=== PATIENT | female | born 1945 | race Caucasian/White ===

== ENCOUNTER 2018-12-02 21:14 | Emergency (ER) | payer MEDICARE, BC ==
--- OUTSIDE RECORDS SUMMARY | 2018-12-02 21:19 | XMS REPORT | Continuity of Care Document ---
:1945 External Reference #:[id number] Author Name Andressa Spaulding Care Team Providers Name Role Phone Daniel Howard MD Primary Care Physician Unavailable Payers Date Identification Numbers Payment Provider Subscriber Policy Number: [id number] Medicare Alea Benitezn PayID: [id number] [address] [place] [address] Expires: 2018 Policy Number: [id number] Medicare Alea Banks PayID: [id number] [address] [place] [address] Effective: 2012 Policy Number: [id number] [facility] Alea Benitezn PayID: [id number] [address] [address] [place] [address] Problems Active Problems Provider Date Disorder of shoulder Ramses Banda MD Onset: 11/14/2018 Family History Date Family Member(s) Observation Comments General Cancer General Heart Disease General Diabetes General Hypertension General Stroke General Rheumatoid Arthritis Social History Type Date Description Comments Sex Unknown Lives With Alone Occupation Retired ETOH Use Denies alcohol use Tobacco Use Start: Unknown Patient has never smoked Smoking Status Reviewed: 11/14/18 Patient has never smoked Exercise Type/Frequency Exercises regularly Allergies, Adverse Reactions, Alerts Active Allergies Reaction Severity Comments Date Codeine hypotension/vasovagal response 12/31/2012 Keflex rash 12/31/2012 Penicillin 07/08/2014 Clindamycin 11/14/2018 Medications Active Medications SIG Qnty Indications Ordering Provider Date No Active Medications Unknown 11/14/2018 History Medications No Active Medications Unknown 08/24/2014 - 10/21/2014 No Active Medications Unknown 07/08/2014 - 07/08/2014 Percocet 1-2 tabs by mouth 60tabs Oren Abdullahi M.D. 07/08/2014 - 5-325mg Tablets q4-6 hours as 08/23/2014 needed pain Zofran 1 tab by mouth 60tabs Oren Abdullahi M.D. 07/08/2014 - 4mg Tablets every 6 hours as 08/23/2014 needed nausea No Active Medications Unknown 06/01/2014 - 06/01/2014 Oscal 500/200 D-3 1 po qd Unknown - 05/31/2014 [id number] Tablets Vitamin D3 1 po qd Unknown - 200Iu Capsules 05/31/2014 Meloxicam 1 by mouth every Unknown - 15mg Tablets day 07/07/2014 Aleve Unknown - 11/13/2018 Immunizations CPT Code Status Date Vaccine Lot # [id number] Given 02/26/2013 Flu Vaccine Split Virus Preservative Free For [id number] Indiv [id number] Older Vital Signs Date Vital Result Comment 11/14/2018 9:41am Height 63.50 inches 5'3.50" Weight 155.00 lb Heart Rate 80 /min BP Systolic 138 mmHg BP Diastolic 90 mmHg Respiratory Rate 22 /min Body Temperature 98.5 F Pain Level 10 BMI (Body Mass Index) 27.0 kg/m2 02/08/2015 9:57am Height 64 inches 5'4" Weight 145.00 lb Pain Level 0 BMI (Body Mass Index) 24.9 kg/m2 12/06/2014 9:31am Height 64 inches 5'4" Weight 145.00 lb Pain Level 4 when hurting BMI (Body Mass Index) 24.9 kg/m2 10/21/2014 10:01am Height 64 inches 5'4" Weight 145.00 lb Pain Level 0 BMI (Body Mass Index) 24.9 kg/m2 08/24/2014 11:15am Height 64 inches 5'4" Weight 145.00 lb Pain Level 2 BMI (Body Mass Index) 24.9 kg/m2 07/27/2014 2:36pm Height 64 inches 5'4" Weight 145.00 lb Body Temperature 97.5 F BMI (Body Mass Index) 24.9 kg/m2 07/08/2014 10:00am Height 64 inches 5'4" Weight 145.00 lb Heart Rate 80 /min BP Systolic 141 mmHg BP Diastolic 98 mmHg BMI (Body Mass Index) 24.9 kg/m2 06/10/2014 10:00am Height 64 inches 5'4" Weight 145.00 lb Heart Rate 81 /min BP Systolic 135 mmHg BP Diastolic 95 mmHg BMI (Body Mass Index) 24.9 kg/m2 12/31/2012 1:13pm Height 62.75 inches 5'2.75" Weight 146.00 lb Heart Rate 74 /min BP Systolic Sitting 128 mmHg BP Diastolic Sitting 80 mmHg BMI (Body Mass Index) 26.1 kg/m2 Results Test Date Facility Test Result H/L Range Note Comp Metabolic 07/11/2007 [facility] One Over 1.[address] [address] [phone] Anion Gap 9.0 mmol/L 2-11 1 Albumin/Globulin Ratio 1.3 1-3 Albumin 4.3 GM/DL 3.2-5.2 Alkaline Phosphatase 46 U/L 30-110 Alt (SGPT) 26 U/L 14-54 Ast (Sgot) 27 U/L 12-42 BUN 17 mg/dL 6-24 Calcium 9.8 mg/dL 8.7-10.2 Chloride 100 mmol/L Low 101-111 Co2 (Carbon Dioxide) 30.0 mmol/L 22-32 Globulin 3.4 GM/DL 2-4 Glucose 104 mg/dL 70-105 Potassium 4.2 mmol/L 3.5-5.0 Sodium 139 mmol/L 135-145 Bilirubin Total 0.6 mg/dL 0.4-1.5 Total Protein 7.7 GM/DL 6.2-8.1 BUN/Creatinine Ratio 21.3 High 8-20 Creatinine 0.8 mg/dL 0.5-1.4 1 Anion gap measurement may be of limited value in the presence of any alkalosis, especially in a combined acid base disorder. . Procedures Date Code Description Status 11/14/2018 83776 Inject/Drain Joint/Bursa Major W/O US Completed 01/21/2018 45146 Destruction Of Benign Lesions Any Method 1-14 lesions Completed 01/21/2018 28624 Destruction ALL Benign Or Premalignant Lesion (Other Completed Than [place] 07/16/2014 14861 Arthroscopy Biceps Tenodesis Completed 07/16/2014 75223 Arthroscopy Biceps Tenodesis Completed 07/16/2014 47060 Arthroscopy Shoulder,W/Rotator Cuff Repair Completed 07/16/2014 44983 Arthroscopy Shoulder,W/Rotator Cuff Repair Completed 07/16/2014 73885 Arthroscopy,Shoulder Decompression Of Subacromial Space Completed W/Acromio 07/16/2014 25541 Arthroscopy,Shoulder Decompression Of Subacromial Space Completed W/Acromio 01/02/2012 [id number] Mammogram Completed 11/01/2005 [id number] Colonoscopy Completed Encounters Type Date Location Provider Dx Diagnosis Office Visit 01/21/2018 [facility] Tram Melo, L21.8 Other seborrheic 10:00a MD dermatitis D18.01 Hemangioma of skin and subcutaneous tissue L81.4 Other melanin hyperpigmentation L82.1 Other seborrheic keratosis L82.0 Inflamed seborrheic keratosis L57.0 Actinic keratosis L53.8 Other specified erythematous conditions R20.8 Other disturbances of skin sensation Office Visit 03/06/2017 11:00a [facility] Jass Corcoran L82.1 Other seborrheic keratosis L21.8 Other seborrheic dermatitis D18.01 Hemangioma of skin and subcutaneous tissue Z09 Encntr for f/u exam aft trtmt for cond oth than malig neoplm Z87.2 Personal history of diseases of the skin, subcu Office Visit 01/11/2017 10:10a [facility] Jass Corcoran, L82.1 Other seborrheic keratosis L20.84 Intrinsic (allergic) eczema Office Visit 02/08/2015 10:00a Ambrocio Abdullahi V54.89 [facility], [facility] Other C.M.AEfrain 840.4 Sprains & Strains Rotator Cuff (Capsule) Office Visit 12/06/2014 9:30a [place]4.89 [facility], [facility] Office Visit 10/21/2014 10:00a [place]4.89 Aftercare, [facility] Other [facility] Office Visit 06/10/2014 10:00a Ambrocio Abdullahi 840.4 Sprains & Strains [facility] Rotator Cuff [facility]. (Capsule) Plan of Treatment Future Appointment(s):12/16/2018 10:00 am - Ramses Banda MD at [facility]01/23/2019 10:30 am - Tram Melo MD at [facility] - Ramses Banda, MDM75.42 Impingement syndrome of left shoulderNew Therapy:Physical TherapyFollow up:Follow up: 4 weeks
[2018-12-02 21:22] VITALS: BP 140/103
[2018-12-02] MEDS ORDERED: Lidocaine 1% w EPI 1:100,000* 30 ML VIAL INJ ONE ×2 (21:30→21:33)
[2018-12-02] MEDS ORDERED: Gelfoam 12-7 ADSORBABL SPONGE* 1 EA SPONGE TOPICAL ONE (21:34)
[2018-12-02] MEDS ORDERED: Lidocaine 1% w EPI 1:100,000* 30 ML VIAL ONE (21:36)
--- NOTE | 2018-12-02 21:58 | UC ---
Lower Extremity/Ankle HPI - HPI Summary HPI Summary: 73 yo female present with bleeding varicose vein from picking at it has bleed for hours even with pressure not on blood thinners - History of Current Complaint Chief Complaint: UCLowerExtremity Stated Complaint: WOUND ON LEG Time Seen by Provider: 12/02/18 21:25 Hx Obtained From: Patient Onset/Duration: Sudden Onset Severity Initially: Moderate Severity Currently: Moderate Pain Intensity: 0 Pain Scale Used: 0-10 Numeric Aggravating Factor(s): Standing, Ambulation Alleviating Factor(s): Other - compression Able to Bear Weight: Yes Legs: 1 - bleeding varicose vein - Allergies/Home Medications Allergies/Adverse Reactions: Allergies Allergy/AdvReac Type Severity Reaction Status Date / Time cephalexin Allergy Rash Verified 12/02/18 21:22 codeine Allergy Dizziness Verified 12/02/18 21:22 Penicillins Allergy Unknown Verified 12/02/18 21:22 Reaction Details clindamycin AdvReac HEART Verified 12/02/18 21:24 BURN, LOOSE STOOLS Home Medications: Home Medications Ibuprofen TAB* [Advil TAB*] 200 mg PO PRN 12/02/18 [History] PMH/Surg Hx/FS Hx/Imm Hx Previously Healthy: Yes - Surgical History Surgical History: Yes Surgery Procedure, Year, and Place: 1987 LAMINECTOMY RUPTURED DISK LOW BACK, [place]. 1996 RIGHT BUNIONECTOMY, [facility]. 1996 LEFT FOOT SURGERY, [facility]. 1974 BILATERAL TUBAL LIGATION,. BASAL CELL CARCINOMAS REMOVED, OFFICE. 2004 LEFT SHOULDER BONE SPUR SURGERY, OFFICE - Family History Known Family History: Positive: Hypertension - Social History Alcohol Use: None Alcohol Amount: MEME AND EASTER Substance Use Type: None Smoking Status (MU): Never Smoked Tobacco Review of Systems All Other Systems Reviewed And Are Negative: Yes Constitutional: Positive: Negative Skin: Positive: Negative Eyes: Positive: Negative ENT: Positive: Negative Respiratory: Positive: Negative Cardiovascular: Positive: Negative Gastrointestinal: Positive: Negative Genitourinary: Positive: Negative Motor: Positive: Negative Neurovascular: Positive: Negative Musculoskeletal: Positive: Negative Neurological: Positive: Negative Psychological: Positive: Negative Physical Exam Triage Information Reviewed: Yes Appearance: Well-Appearing, No Pain Distress, Well-Nourished Vital Signs: Initial Vital Signs Temp 97.1 F 12/02/18 21:18 Pulse 95 12/02/18 21:18 Resp 20 12/02/18 21:18 BP 140/103 12/02/18 21:18 Pulse Ox 97 12/02/18 21:18 Vital Signs Reviewed: Yes Eyes: Positive: Conjunctiva Clear ENT: Positive: Hearing grossly normal. Negative: Nasal congestion, Nasal drainage, Trismus, Muffled voice, Hoarse voice Neck: Positive: Supple, Nontender, No Lymphadenopathy Respiratory: Positive: Lungs clear, Normal breath sounds, No respiratory distress, No accessory muscle use Cardiovascular: Positive: RRR, No Murmur Musculoskeletal: Positive: ROM Intact, No Edema Neurological: Positive: Alert Psychological Exam: Normal Skin Exam: Other - varicoe veins lower extr Procedures - Procedure Summary Procedure Summary: CAUTERY of bleeding vaicose vein procedure explained time out sterile prep anesth with lido + epi 1 cc cauterized with electric cautery gelfoam 4 x 4 juana wrap tolerated procedure well Lower Extremity Course/Dx - Differential Dx/Diagnosis Provider Diagnosis: Bleeding from varicose veins of left lower extremity, Elevated BP without diagnosis of hypertension Discharge - Sign-Out/Discharge Documenting (check all that apply): Patient Departure, Post-Discharge Follow Up All imaging exams completed and their final reports reviewed: No Studies - Discharge Plan Condition: Stable Disposition: HOME Referrals: Daniel Howard MD [Primary Care Provider] - 6 Days Additional Instructions: recheck next week keep dressing on until late morning be careful rest elevate bandaid tomorrow don't pick - Billing Disposition and Condition Condition: STABLE Disposition: Home
== END 2018-12-02 22:03 | disposition home or self-care (01) ==
LOC: UCEAST 21:14
DX: I83.892 Varicose veins of left lower extremity with other complications (principal); R03.0 Elevated blood-pressure reading, without diagnosis of hypertension; Z88.5 Allergy status to narcotic agent; Z88.0 Allergy status to penicillin
CPT/HCPCS: 99211; A9270-GY; G0463

== ENCOUNTER 2018-12-03 13:17 | Emergency (ER) | payer MEDICARE, BC ==
--- NOTE | 2018-12-03 13:36 | UC ---
Skin Complaint HPI - HPI Summary HPI Summary: 73-year-old female comes in with a chief complaining of bleeding varicose vein in the left lower leg. Yesterday day patient scratched her leg and started bleeding she came here to urgent care and she had the area cauterized and then she had dressing placed. Instructions to change the bandage today when she was change the bandage she started bleeding again. With the bandage back on and the bleeding stopped. - History of Current Complaint Time Seen by Provider: 12/03/18 13:24 Stated Complaint: WOUND CHECK - Allergy/Home Medications Allergies/Adverse Reactions: Allergies Allergy/AdvReac Type Severity Reaction Status Date / Time cephalexin Allergy Rash Verified 12/03/18 13:29 codeine Allergy Dizziness Verified 12/03/18 13:29 Penicillins Allergy Unknown Verified 12/03/18 13:29 Reaction Details clindamycin AdvReac HEART Verified 12/03/18 13:29 BURN, LOOSE STOOLS PMH/Surg Hx/FS Hx/Imm Hx Previously Healthy: Yes - Surgical History Surgical History: Yes Surgery Procedure, Year, and Place: 1987 LAMINECTOMY RUPTURED DISK LOW BACK, [place]. 1996 RIGHT BUNIONECTOMY, [facility]. 1996 LEFT FOOT SURGERY, [facility]. 1974 BILATERAL TUBAL LIGATION,. BASAL CELL CARCINOMAS REMOVED, OFFICE. 2004 LEFT SHOULDER BONE SPUR SURGERY, OFFICE - Family History Known Family History: Positive: Hypertension - Social History Alcohol Use: None Alcohol Amount: MEME AND EASTER Substance Use Type: None Smoking Status (MU): Never Smoked Tobacco Review of Systems All Other Systems Reviewed And Are Negative: Yes Constitutional: Positive: Negative Skin: Positive: Other - SEE HPI Eyes: Positive: Negative ENT: Positive: Negative Respiratory: Positive: Negative Cardiovascular: Positive: Negative Gastrointestinal: Positive: Negative Motor: Positive: Negative Neurovascular: Positive: Negative Musculoskeletal: Positive: Negative Neurological: Positive: Negative Psychological: Positive: Negative Is Patient Immunocompromised?: No Physical Exam Triage Information Reviewed: Yes Appearance: Well-Appearing, No Pain Distress, Well-Nourished Vital Signs Reviewed: Yes Eye Exam: Normal Eyes: Positive: Conjunctiva Clear Neck: Positive: Supple Respiratory: Positive: No respiratory distress Musculoskeletal: Positive: Strength Intact, ROM Intact Neurological: Positive: Alert, Muscle Tone Normal Psychological: Positive: Age Appropriate Behavior Skin: Positive: Other - Left upper anterior rosario has a dressing in place with some blood underneath it. No active bleeding around the dressing. In clinic a pressure dressing was placed over this. Course/Dx - Course Course Of Treatment: A pressure dressing was placed over the dressing that was in place. No active bleeding in clinic. The plan is to remove the dressing in 2 days using a water soak to help avoid further bleeding. Patient's get reevaluated sooner if worse or any questions or concerns. - Diagnoses Provider Diagnosis: Varicose vein of leg Discharge - Sign-Out/Discharge Documenting (check all that apply): Patient Departure All imaging exams completed and their final reports reviewed: No Studies - Discharge Plan Condition: Stable Disposition: HOME Patient Education Materials: Venous Insufficiency (DC) Referrals: Daniel Howard MD [Primary Care Provider] - Additional Instructions: FOLLOW UP WITH YOUR DOCTOR IF NOT COMPLETELY IMPROVED. GET RECHECKED SOONER IF YOUR CONDITION WORSENS OR ANY QUESTIONS OR CONCERNS. - Billing Disposition and Condition Condition: STABLE Disposition: Home
[2018-12-03 13:38] VITALS: BP 141/82
== END 2018-12-03 13:40 | disposition home or self-care (01) ==
LOC: UCEAST 13:17
DX: I83.892 Varicose veins of left lower extremity with other complications (principal)
CPT/HCPCS: 99211; G0463

== ENCOUNTER 2019-05-23 12:30 | Emergency (ER) | payer MEDICARE, BC ==
--- NOTE | 2019-05-23 12:50 | ED ---
Upper Extremity Pain - HPI Summary HPI Summary: This patient is a 74 year old female presenting to [facility] with a chief complaint of left shoulder pain since 5 days ago. She states she has a Hx of impingement syndrome first diagnosed 6 months ago and states she has pain from around her neck through her shoulder. She states she had surgery for bone spurs in 2004 that involved rotator cuff surgery. She denies any traumatic injury to the area. She states she has already been taking 600 mg of Ibuprofen for vein surgery 3 days ago. - History of Current Complaint Chief Complaint: EDShoulderClavicleInj Stated Complaint: LT SHOULDER PAIN PER PT Time Seen by Provider: 05/23/19 12:40 Hx Obtained From: Patient Onset/Duration: Started Days Ago Timing: Lasting Days Pain Location: Shoulder Character: Sharp - Allergies/Home Medications Allergies/Adverse Reactions: Allergies Allergy/AdvReac Type Severity Reaction Status Date / Time cephalexin Allergy Rash Verified 05/23/19 12:32 codeine Allergy Dizziness Verified 05/23/19 12:32 Penicillins Allergy Unknown Verified 05/23/19 12:32 Reaction Details clindamycin AdvReac HEART Verified 05/23/19 12:32 BURN, LOOSE STOOLS PMH/Surg Hx/FS Hx/Imm Hx Endocrine/Hematology History: Denies: Hx Diabetes Cardiovascular History: Denies: Hx Hypertension, Hx Pacemaker/ICD Musculoskeletal History: Reports: Hx Arthritis, Other Musculoskeletal History - COLLAPSE DISC SPACE L4, L5 Sensory History: Reports: Hx Cataracts, Hx Contacts or Glasses - GLASSES Denies: Hx Hearing Aid Opthamlomology History: Reports: Hx Cataracts, Hx Contacts or Glasses - GLASSES Psychiatric History: Denies: Hx Panic Disorder - Cancer History Cancer Type, Location and Year: baasal cell - Surgical History Surgery Procedure, Year, and Place: 1987 LAMINECTOMY RUPTURED DISK LOW BACK, [place]. 1996 RIGHT BUNIONECTOMY, [facility]. 1996 LEFT FOOT SURGERY, [facility]. 1974 BILATERAL TUBAL LIGATION,. BASAL CELL CARCINOMAS REMOVED, OFFICE. 2004 LEFT SHOULDER BONE SPUR SURGERY, OFFICE Hx Anesthesia Reactions: Yes - TOO MUCH MUSCLE RELAXANT - DAYS TO WEAR OFF, UNABLE TO LIFT HEAD, VOMITING Infectious Disease History: No Infectious Disease History: Reports: Hx Shingles Denies: Traveled Outside the [place] in Last 30 Days - Family History Known Family History: Positive: Hypertension - Social History Alcohol Use: None Alcohol Amount: MEME AND EASTER Substance Use Type: Reports: None Smoking Status (MU): Never Smoked Tobacco Review of Systems Negative: Fever Positive: Other - Shoulder/neck pain All Other Systems Reviewed And Are Negative: Yes Physical Exam - Summary Physical Exam Summary: Constitutional: Well-developed, Well-nourished, Alert. (-) Distressed Skin: Warm, Dry HENT: Normocephalic; Atraumatic Eyes: Conjunctiva normal Neck: Musculoskeletal ROM normal neck. (-) JVD, (-) Stridor, (-) Tracheal deviation. Symptoms slightly reproducible with side-bending of the neck to the left. Cardio: Rhythm regular, rate normal, Heart sounds normal; Intact distal pulses; Radial pulses are 2+ and symmetric. (-) Murmur Pulmonary/Chest wall: Effort normal. (-) Respiratory distress, (-) Wheezes, (-) Rales Abd: Soft, (-) tenderness, (-) Distension, (-) Guarding, (-) Rebound Musculoskeletal: (-) Edema. Full ROM in left shoulder. No popping/clicking, tenderness over the medial scapula. Lymph: (-) Cervical adenopathy Neuro: Alert, Oriented x3 Psych: Mood and affect Normal Triage Information Reviewed: Yes Vital Signs On Initial Exam: Initial Vitals Temp Pulse Resp BP Pulse Ox 98.3 F 88 16 169/99 97 05/23/19 12:34 05/23/19 12:34 05/23/19 12:34 05/23/19 12:34 05/23/19 12:34 Vital Signs Reviewed: Yes Procedures - Sedation Patient Received Moderate/Deep Sedation with Procedure: No Diagnostics - Vital Signs Vital Signs Temp Pulse Resp BP Pulse Ox 05/23/19 12:34 98.3 F 88 16 169/99 97 - Laboratory Lab Statement: Any lab studies that have been ordered have been reviewed, and results considered in the medical decision making process. Course/Dx - Course Course Of Treatment: This patient is a 74 year old female presenting to [facility] with a chief complaint of left shoulder pain since 5 days ago. Her shoulder has full ROM on physical exam, with slight tenderness over the medial scapula. The patient will be prescribed prednisone to help reduce inflammation. A plan for discharge was discussed with the patient and she was agreeable with this plan. - Diagnoses Provider Diagnoses: Shoulder pain Discharge ED - Sign-Out/Discharge Documenting (check all that apply): Patient Departure - Discharge - Discharge Plan Condition: Stable Disposition: HOME Patient Education Materials: Shoulder Pain (ED) Referrals: [facility] [Provider Group] - 3 Days Additional Instructions: Return to ED with new or worsening symptoms. - Attestation Statements Document Initiated by Scribe: Yes Documenting Scribe: Eduin Ibrahim Provider For Whom Scribe is Documenting (Include Credential): Demetri Malhotra DO Scribe Attestation: IEduin, scribed for Demetri Malhotra DO on 05/23/19 at 1245. Status of Scribe Document: Ready
[2019-05-23] MEDS ORDERED: predniSONE TAB* 20 MG PO ONE (12:53)
[2019-05-23 13:27] VITALS: BP 166/101
== END 2019-05-23 13:20 | disposition home or self-care (01) ==
LOC: ED 12:30
DX: M25.512 Pain in left shoulder (principal); Z88.0 Allergy status to penicillin; Z88.5 Allergy status to narcotic agent; Z85.9 Personal history of malignant neoplasm, unspecified
CPT/HCPCS: 99281; J7512

== ENCOUNTER 2019-05-29 14:30 | Emergency (ER) | payer MEDICARE, BC ==
--- OUTSIDE RECORDS SUMMARY | 2019-05-29 14:37 | XMS REPORT | Continuity of Care Document ---
:1945 External Reference #:[id number] Author Name JERAMY Alba (transmitted by agent of provider Dilcia Wilcox) Address [address] [place] [address] Care Team Providers Name Role Phone Daniel Howard M.D. - Family Medicine Care Team Information [employer]eder [phone] Problems Active Problems Provider Date Chronic peripheral venous hypertension Kofi Smith Onset: 12/26/2018 Body mass index 25-29 - overweight Kofi Smith Onset: 12/26/2018 Social History Type Date Description Comments Sex Unknown ETOH Use Denies alcohol use Tobacco Use Start: Unknown Patient has never smoked Recreational Drug Use Denies Drug Use Smoking Status Reviewed: 08/26/18 Patient has never smoked Allergies, Adverse Reactions, Alerts Active Allergies Reaction Severity Comments Date Codeine 12/26/2018 Keflex 12/26/2018 Penicillin 12/26/2018 Clindamycin Diarrhea, Nausea, heartburn 12/26/2018 Medications Active Medications SIG Qnty Indications Ordering Provider Date No Active Medications Unknown 05/25/2019 Compression Stockings Wear Daily 1Pair I87.322 Kofi Smith 2018 For 6 Months 20-30MMHG Knee Highs Misc History Medications Gabapentin take 1 tablet by 1tabs I87.322 Kofi Smith 04/16/2019 - 600mg mouth 1 hour 05/25/2019 Tablets prior to your procedure arrival time No Active Unknown 12/26/2018 - Medications 04/16/2019 Immunizations CPT Code Status Date Vaccine Lot # [id number] Given 02/26/2019 Influenza Vaccine [id number] Given 06/04/2016 Pneumococcal Vaccine Vital Signs Date Vital Result Comment 04/16/2019 10:00am Height 63.5 inches 5'3.50" Weight 150.00 lb BP Systolic 148 mmHg BP Diastolic 88 mmHg BMI (Body Mass Index) 26.2 kg/m2 Heart Rate 80 /min Respiratory Rate 18 /min Pain Level 1 out of 10 swelling and bleeding varix 12/26/2018 1:48pm Height 63.5 inches 5'3.50" Weight 150.00 lb BP Systolic 133 mmHg BP Diastolic 80 mmHg BMI (Body Mass Index) 26.2 kg/m2 Heart Rate 82 /min Respiratory Rate 18 /min Pain Level 2 out of 10 tender to touch Results Description No Information Available Procedures Date Code Description Status 05/25/2019 49093 Duplex Scan Extremity Veins, Unilateral Or Limited Study Completed 05/20/2019 43572 Endovenous Ablation Therapy, Incompetent Vein, Extremity, Completed 1St Vei 12/26/2018 54620 Duplex Scan Extremity Veins, Unilateral Or Limited Study Completed 12/26/2018 84169 Injection Sclerosing Solution Multiple Veins Same Leg Completed Medical Devices Description No Information Available Encounters Type Date Location Provider Dx Diagnosis Office Visit 05/25/2019 [facility] JERAMY Alba I87.322 Chronic venous 8:30a hypertension w inflammation of l low extrem Office Visit 04/16/2019 [facility] Kofi Smith I87.322 Chronic venous 10:00a hypertension w inflammation of l low extrem Z68.26 Body mass index (BMI) 26.0-26.9, adult Office Visit 01/01/2019 2:30p [facility] Carmelita Barrow, I87.322 Chronic venous PA hypertension w inflammation of l low extrem Office Visit 12/26/2018 2:00p [facility], I87.322 Chronic venous Kofi hypertension w inflammation of l low extrem Z68.26 Body mass index (BMI) 26.0-26.9, adult Assessments Date Code Description Provider 05/25/2019 I87.322 Chronic venous hypertension (idiopathic) with JERAMY Alba inflammation o 05/20/2019 I87.322 Chronic venous hypertension (idiopathic) with Kofi Smith inflammation o 04/16/2019 I87.322 Chronic venous hypertension (idiopathic) with Kofi Smith inflammation o 04/16/2019 Z68.26 Body mass index (BMI) 26.0-26.9, adult Kofi Smith 01/01/2019 I87.322 Chronic venous hypertension (idiopathic) with BEN Servin inflammation o 12/26/2018 I87.322 Chronic venous hypertension (idiopathic) with Kofi Smith inflammation o 12/26/2018 Z68.26 Body mass index (BMI) 26.0-26.9, adult Kofi Smith Plan of Treatment Future Appointment(s):06/18/2019 2:30 pm - [facility]Y [facility]ba [facility] Functional Status Description No Information Available Mental Status Description No Information Available Referrals Refer to Reason for Referral Status Appt Date Kofi Smith M.D. LEFT LEG SURGERY Created [address] [facility] [address] [place] [address] [place] [address] [phone]
--- OUTSIDE RECORDS SUMMARY | 2019-05-29 14:37 | XMS REPORT | Continuity of Care Document ---
:1945 External Reference #:[id number] Author Name JERAMY Alba (transmitted by agent of provider Dilcia Wilcox) Address [address] [place] [address] Care Team Providers Name Role Phone Daniel Howard M.D. - Family Medicine Care Team Information Certified Neurodiagnostic Technologist [phone] Problems Active Problems Provider Date Chronic peripheral [...] CPT Code Status Date Vaccine Lot # [id number] Given 02/26/2019 Influenza Vaccine [id number] Given 06/04/2016 Pneumococcal Vaccine Vital Signs Date [...] Available Procedures Date Code Description Status 05/25/2019 44141 Duplex Scan Extremity Veins, Unilateral Or Limited Study Completed 05/20/2019 73121 Endovenous Ablation Therapy, Incompetent Vein, Extremity, Completed 1St Vei 12/26/2018 85274 Duplex Scan Extremity Veins, Unilateral Or Limited Study Completed 12/26/2018 38612 Injection Sclerosing Solution Multiple Veins Same Leg Completed Medical Devices Description No Information Available Encounters Type Date Location Provider Dx Diagnosis Office Visit 04/16/2019 [facility] I87.322 Chronic venous 10:00a hypertension w inflammation of l low extrem Z68.26 Body mass index (BMI) 26.0-26.9, adult Office Visit 01/01/2019 2:30p [facility] B[facility] I87.322 Chronic venous PA hypertension w inflammation of l low extrem Office Visit 12/26/2018 2:00p [facility] I87.322 Chronic venous Kofi hypertension w inflammation [...] Appointment(s):06/18/2019 2:30 pm - JERAMY Alba at [facility] Functional Status Description No Information Available Mental Status Description No Information Available Referrals Refer to Reason for Referral Status Appt Date Kofi Smith M.D. LEFT LEG SURGERY Created [address] [place] [address] [address] [place] [address] [phone]
[2019-05-29 14:54] VITALS: BP 147/93
--- NOTE | 2019-05-29 15:04 | UC ---
Shoulder Pain HPI - HPI Summary HPI Summary: 74 yo female presents with LEFT shoulder pain. She tells me that back around 2018 she had left shoulder pain and saw Orthopedics and was dx'd with an impingement. Started PT and had little relief. Had a steroid injection and pain resolved. Over the last 1-2 weeks has been doing a lot of lifting and moving for the holiday and her shoulder has flared back up. Has same pain as before. She has been taking ibuprofen with little relief. She was in the ER a few days ago and prescribed prednisone, which helped a little but mad her feel "hot". She called Orthopedics and made an appt for their first available on 06/04/18. She is here today with continued pain. No specific injury. Denies numbness, tingling, SOB, chest pain. - History of Current Complaint Chief Complaint: UCUpperExtremity Stated Complaint: SHOULDER PAIN Time Seen by Provider: 05/29/19 15:03 Hx Obtained From: Patient Hx Last Menstrual Period: post menopause Onset/Duration: Gradual Onset Severity Initially: Moderate Severity Currently: Severe Pain Intensity: 10 Pain Scale Used: 0-10 Numeric - Allergies/Home Medications Allergies/Adverse Reactions: Allergies Allergy/AdvReac Type Severity Reaction Status Date / Time cephalexin Allergy Rash Verified 05/29/19 14:54 codeine Allergy Dizziness Verified 05/29/19 14:54 Penicillins Allergy Unknown Verified 05/29/19 14:54 Reaction Details clindamycin AdvReac HEART Verified 05/29/19 14:54 BURN, LOOSE STOOLS PMH/Surg Hx/FS Hx/Imm Hx - Additional Past Medical History Additional PMH: None - Surgical History Surgical History: Yes Surgery Procedure, Year, and Place: 1987 LAMINECTOMY RUPTURED DISK LOW BACK, [place]. 1996 RIGHT BUNIONECTOMY, [facility]. 1996 LEFT FOOT SURGERY, [facility]. 1974 BILATERAL TUBAL LIGATION,. vein repair a few weeks ago. BASAL CELL CARCINOMAS REMOVED, OFFICE. 2004 LEFT SHOULDER BONE SPUR SURGERY, OFFICE - Family History Known Family History: Positive: Hypertension - Social History Lives: With Family Alcohol Use: None Alcohol Amount: MEME AND [place]ASTER Substance Use Type: None Smoking Status (MU): Never Smoked Tobacco Review of Systems All Other Systems Reviewed And Are Negative: No Constitutional: Positive: Negative Skin: Positive: Negative Respiratory: Positive: Negative Cardiovascular: Positive: Negative Neurovascular: Positive: Negative Musculoskeletal: Positive: Other: - Left shoulder pain Neurological: Positive: Negative Psychological: Positive: Negative Physical Exam - Summary Physical Exam Summary: GENERAL: NAD. WDWN. No pain distress. SKIN: No rashes, sores, lesions, or open wounds. CHEST: No accessory muscle use. Breathing comfortably and in no distress. CV: Pulses intact radial and ulnar. Cap refill <2seconds MSK: LEFT SHOULDER: FROM, but pain with raising above head. TTP at AC joint. POSITIVE bishop. Strength 5/5. No edema or obvious bony deformities. Negative empty can NEURO: Alert. Sensations intact C4-T1 b/l PSYCH: Age appropriate behavior. Triage Information Reviewed: Yes Vital Signs: Initial Vital Signs Temp 98.6 F 05/29/19 14:45 Pulse 97 05/29/19 14:45 Resp 18 05/29/19 14:45 BP 147/93 05/29/19 14:45 Pulse Ox 99 05/29/19 14:45 Vital Signs Reviewed: Yes Shoulder Course/Dx - Course Course Of Treatment: Suspect muscle spasm/shoulder impingement. Advised to continue ibuprofen and will rx for flexeril. Strongly encouraged to keep appt with Ortho for further eval and treatment - Differential Dx/Diagnosis Provider Diagnosis: Left shoulder pain Discharge ED - Sign-Out/Discharge Documenting (check all that apply): Patient Departure All imaging exams completed and their final reports reviewed: No Studies - Discharge Plan Condition: Stable Disposition: HOME Prescriptions: Cyclobenzaprine TAB* [Flexeril 10 MG TAB*] 10 mg PO TID PRN #21 tab PRN Reason: Pain - Mild Patient Education Materials: Shoulder Pain (ED) Referrals: Daniel Howard MD [Primary Care Provider] - Additional Instructions: If you develop a fever, shortness of breath, chest pain, new or worsening symptoms - please call your PCP or go to the ED immediately. Your blood pressure was high at todays visit. Please see your primary provider within 4 weeks for recheck and re-evaluation. Keep your appointment with Orthopedics for next week for further evaluation and treatment of your shoulder pain - Billing Disposition and Condition Condition: STABLE Disposition: Home
== END 2019-05-29 15:39 | disposition home or self-care (01) ==
LOC: UCEAST 14:30
DX: M25.512 Pain in left shoulder (principal); Z88.1 Allergy status to other antibiotic agents; Z88.0 Allergy status to penicillin; Z88.5 Allergy status to narcotic agent
CPT/HCPCS: 99212; G0463